=== PATIENT | male | born 1990 | race Two or more races ===

== ENCOUNTER 2019-11-04 04:10 | Emergency (ER) | payer MEDICAID, OTHER ==
[~2019-11-04] VITALS: Ht 175.3 cm; Wt 86.2 kg
[2019-11-04 04:35] VITALS: BP 140/72
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
[2019-11-04] MEDS ORDERED: Azithromycin 250mg tab ORAL ONE (04:45)
[2019-11-04] MEDS ORDERED: Lidocaine 1% MPF 10mg/ml 5ml INJ ONE (04:45)
--- NOTE | 2019-11-04 04:49 | NUR ---
ED Nurse Note: all medications administered, pt tolerated well no ss of distress noted. will continue to monitor.
--- NOTE | 2019-11-04 04:55 | NUR ---
ED Nurse Note: Pt taken to CT in stable condition, VSS no ss of distress noted.
--- NOTE | 2019-11-04 05:25 | NUR ---
ED Nurse Note: Pt returned from CT in stable condition, VSS no ss of distress noted.
--- NOTE | 2019-11-04 05:54 | Diagnostic Imaging Report ---
EXAM: CT Head Without Intravenous Contrast CLINICAL HISTORY: TRAUMA TECHNIQUE: Axial computed tomography images of the head/brain without intravenous contrast. CTDI is 53.40 mGy and DLP is 1072.20 mGy-cm. One or more of the following dose reduction techniques were used: automated exposure control, adjustment of the mA and/or kV according to patient size, use of iterative reconstruction technique. COMPARISON: No relevant prior studies available. FINDINGS: There is no acute intracranial hemorrhage. The territorial daley-white matter differentiation is maintained throughout. There is no midline shift or mass effect. The ventricles and sulci are commensurate for age. The visualized orbits appear grossly unremarkable. The calvarium is intact. Right frontal scalp soft tissue swelling. The visualized paranasal sinuses and mastoid air cells are grossly clear. IMPRESSION: No acute intracranial hemorrhage, midline shift, or mass effect.
[2019-11-04 05:55] VITALS: BP 140/72
--- NOTE | 2019-11-04 05:55 | NUR ---
ER DISCHARGE NOTE: Patient is cleared to be discharged home per ERMD, pt is aox4, 99% on room air, with stable vital signs. pt was given dc instructions, pt was able to verbalize understanding, pt id band removed. pt is able to ambulate with steady gait. pt took all belongings.
== END 2019-11-04 05:55 | disposition home or self-care (01) ==
LOC: EMR 04:35
DX: S09.90XA Unspecified injury of head, initial encounter (principal); S00.431A Contusion of right ear, initial encounter; S30.1XXA Contusion of abdominal wall, initial encounter; A54.01 Gonococcal cystitis and urethritis, unspecified; W19.XXXA Unspecified fall, initial encounter; Y92.9 Unspecified place or not applicable
CPT/HCPCS: 70450; 96372; 96374; J0696; Q0144; Z7502; 99284